=== PATIENT | male | born 1960 | race African-American/Black ===

== ENCOUNTER → 2025-10-02 | Emergency (ER) | payer OTHER ==
[~2025-10-02] VITALS: Ht 175.3 cm; Wt 74.8 kg
[~2025-10-02] MED LIST: 0.9 % SODIUM CHLORIDE 500 ML IV ONE; FAMOTIDINE/PF 20 MG/2 ML VIAL IV ONE; LABETALOL HCL 100 MG/20 ML ML IV ONE; ONDANSETRON HCL 2 MG/ML VIAL IV ONE
[2025-10-02 09:57] LABS: BASO % 1.4 % (0.1-1.2); EOS # 0.44 (0.04-0.54); EOS % 8.5 % (0.7-7.0); LYMPH # 0.32 (1.18-3.74); LYMPH % 6.2 % (19.3-53.1); MEAN PLATELET VOLUME 10.80 fl (9.4-12.4); MONO # 0.84 (0.24-0.82); NEUT # 3.49 (1.56-6.13); NEUT % 67.3 % (34.0-71.1); RED CELL DISTRIBUTION WIDTH 17.8 % (11.6-14.4)
[2025-10-02 10:00] LABS: MONO % 16.2 % (4.7-12.5)
[2025-10-02 10:06] LABS: INR 1.04
[2025-10-02 11:56] LABS: ALT/SGPT 61.0 U/L (12-78); AST/SGOT 87.0 U/L (15-37); BILIRUBIN TOTAL 0.72 mg/dL (0.3-1.2); BUN CREA RATIO 9.0 (7.0-25.0); CREATININE SERUM 1.27 mg/dL (0.70-1.30); GFR 57.46; GLOBULINA 5.3 G/DL (2.4-3.5); GLUCOSE FASTING 165.0 mg/dL (65-100); OSMOLALITY SERUM 277.0 MOSM/KG (275-295)
[2025-10-02 14:12] LABS: COVID-19 AG NEGATIVE (NEGATIVE)
== END | disposition left against medical advice (07) ==
LOC: ER 08:49
PROVIDERS: General Practice
DX: R42 Dizziness and giddiness (principal); I10 Essential (primary) hypertension; Z20.822 Contact with and (suspected) exposure to COVID-19